=== PATIENT | male | born 2000 | race Two or more races ===

== ENCOUNTER 2024-05-13 07:40 | Emergency (ER) | payer OTHER ==
[~2024-05-13] VITALS: Ht 175.3 cm; Wt 72.6 kg
[2024-05-13 07:57] VITALS: BP 129/83; O2SAT 99
== END 2024-05-13 10:01 | disposition home or self-care (01) ==
LOC: ER 07:42
DX: S62.613A Displaced fracture of proximal phalanx of left middle finger, initial encounter for closed fracture (principal); Y93.66 Activity, soccer; Y93.89 Activity, other specified; Y92.89 Other specified places as the place of occurrence of the external cause

== ENCOUNTER 2024-07-29 10:57 | Outpatient (CLI) | payer OTHER | END 2024-07-29 11:08 | disposition home or self-care (01) | LOC: RAD 10:57 | PROVIDERS: ATTEND Orthopaedic Surgery | DX: M79.671 Pain in right foot (principal) ==

== ENCOUNTER 2024-10-14 12:52 | Outpatient (CLI) | payer OTHER | END 2024-10-14 13:01 | disposition home or self-care (01) | LOC: RAD 12:52 | PROVIDERS: ATTEND Orthopaedic Surgery | DX: M25.571 Pain in right ankle and joints of right foot (principal); M25.561 Pain in right knee ==

== ENCOUNTER → 2024-10-25 | Outpatient (CLI) | payer OTHER | END | disposition home or self-care (01) | LOC: RAD 13:21 | PROVIDERS: ATTEND Orthopaedic Surgery Sports Medicine | DX: M25.571 Pain in right ankle and joints of right foot (principal) ==

== ENCOUNTER 2024-11-14 09:47 | Outpatient (CLI) | payer OTHER | END 2024-11-14 09:57 | disposition home or self-care (01) | LOC: RAD 09:47 | PROVIDERS: ATTEND Orthopaedic Surgery Sports Medicine | DX: S82.61XB Displaced fracture of lateral malleolus of right fibula, initial encounter for open fracture type I or II (principal) ==